=== PATIENT | female | born 1980 | race African-American/Black ===

== ENCOUNTER 2018-09-07 22:20 | Inpatient (IN) | payer OTHER, MEDICAID ==
[~2018-09-07] VITALS: Ht 177.8 cm; Wt 72.6 kg
[2018-09-07 22:25] VITALS: BP_SYST 179
[2018-09-07] MEDS ORDERED: NITROGLYCERIN 1 INCH (GM) OINT. TP ONE (23:30)
[2018-09-07] MEDS ORDERED: ACYCLOVIR IV 500 MG in D5W 100 ML IV ONE (23:45)
[2018-09-07] MEDS ORDERED: HYDROmorphone 1 MG INJ. 1 MG/ML AMPUL IVP ONE (23:45)
[2018-09-08] VITALS (11 sets, daily range): BP systolic 100–160
[2018-09-08] MEDS ORDERED: ACYCLOVIR SODIUM 50 MG/ML VIAL IV ONE ×2 (00:36)
[2018-09-08 01:07] LABS: BASOPHILS # (AUTO) 0.1 K/uL (0.0-0.2); BASOPHILS % (AUTO) 0.9 % (0.0-2.0); EOSINOPHILS % (AUTO) 0.2 % (0.0-4.0); HEMATOCRIT 34.6 % (36-48); HEMOGLOBIN 11.1 g/dL (12.0-16.0); LYMPHOCYTES # (AUTO) 1.3 K/uL (1.0-5.5); LYMPHOCYTES % (AUTO) 9.4 % (20.5-51.5); MEAN CORPUSCULAR HEMOGLOBIN 27 pg (27-31); MEAN CORPUSCULAR HGB CONC 32 % (32-36); MEAN CORPUSCULAR VOLUME 85 fL (79.0-98.0); MONOCYTES # (AUTO) 0.6 K/uL (0.0-1.0); MONOCYTES % (AUTO) 4.4 % (1.7-9.3); NEUTROPHILS # (AUTO) 11.8 K/uL (1.8-7.7); NEUTROPHILS % (AUTO) 85.1 % (40.0-70.0); PLATELET COUNT (AUTO) 284 K/uL (130-430); RED BLOOD CELL COUNT(AUTO) 4.07 MIL/uL (4.2-6.2); RED CELL DISTRIBUTION WIDTH 15.2 % (9.0-15.0); WHITE BLOOD COUNT (AUTO) 13.8 K/uL (4.8-10.8)
[2018-09-08 01:10] LABS: CALCIUM 9.3 mg/dL (8.4-11.0); CREATININE 5.76 mg/dL (0.55-1.30); POTASSIUM 4.6 mmol/L (3.5-5.1)
[2018-09-08 01:15] LABS: PROTHROMBIN TIME 9.8 SECS (9.5-12.5)
[2018-09-08 01:16] LABS: ALBUMIN 3.6 g/dL (3.4-4.8); TOTAL BILIRUBIN 0.9 mg/dL (0.0-1.0)
[2018-09-08] MEDS ORDERED: ONDANSETRON HCL 4 MG/2 ML VIAL IVP ONE ×2 (01:30)
[2018-09-08] MEDS ORDERED: fentaNYL CITRATE/PF 100 MCG/2 ML AMP IVP ONE ×2 (01:30)
[2018-09-08] MEDS ORDERED: ACETAMINOPHEN 325 MG TABLET PO PRN (03:45)
[2018-09-08] MEDS ORDERED: ALBUTEROL SULFATE 0.083% 2.5 MG/3 ML VIAL.NEB INH PRN (03:45)
[2018-09-08] MEDS: HYDROmorphone 1 MG INJ. 1 MG/ML AMPUL IVP PRN ×4 (03:55→23:26)
[2018-09-08] MEDS: ONDANSETRON HCL 4 MG/2 ML VIAL IVP PRN ×2 (03:56→07:53)
[2018-09-08 08:19] LABS: BASOPHILS % (AUTO) 0.3 % (0.0-2.0); EOSINOPHILS % (AUTO) 0.1 % (0.0-4.0); HEMATOCRIT 31.4 % (36-48); HEMOGLOBIN 9.8 g/dL (12.0-16.0); LYMPHOCYTES # (AUTO) 0.7 K/uL (1.0-5.5); LYMPHOCYTES % (AUTO) 5.5 % (20.5-51.5); MEAN CORPUSCULAR HEMOGLOBIN 27 pg (27-31); MEAN CORPUSCULAR HGB CONC 31 % (32-36); MEAN CORPUSCULAR VOLUME 87 fL (79.0-98.0); MONOCYTES # (AUTO) 0.4 K/uL (0.0-1.0); MONOCYTES % (AUTO) 2.7 % (1.7-9.3); NEUTROPHILS # (AUTO) 12.5 K/uL (1.8-7.7); NEUTROPHILS % (AUTO) 91.4 % (40.0-70.0); PLATELET COUNT (AUTO) 298 K/uL (130-430); RED BLOOD CELL COUNT(AUTO) 3.61 MIL/uL (4.2-6.2); RED CELL DISTRIBUTION WIDTH 15.6 % (9.0-15.0); WHITE BLOOD COUNT (AUTO) 13.6 K/uL (4.8-10.8)
[2018-09-08 08:26] LABS: CREATININE 6.5 mg/dL (0.55-1.30)
[2018-09-08 08:36] LABS: ALBUMIN 3.5 g/dL (3.4-4.8)
[2018-09-08 08:38] LABS: POTASSIUM 5.9 mmol/L (3.5-5.1)
[2018-09-08] MEDS ORDERED: DEXTROSE 50% JECT 50 ML DISP.SYRIN IVP PRN (08:45)
[2018-09-08] MEDS ORDERED: INSULIN REGULAR, HUMAN 100 UNITS/ML, 10 ML VIAL IVP ONE (08:45)
[2018-09-08] MEDS: INSULIN REGULAR, HUMAN 100 UNITS/ML, 10 ML VIAL (novoLIN R) SUBCUT PRN ×3 (11:09→23:28)
[2018-09-08] MEDS ORDERED: INSULIN REGULAR, HUMAN 100 UNITS/ML, 10 ML VIAL SUBCUT ONE (13:00)
[2018-09-08] MEDS ORDERED: HEPARIN SODIUM,PORCINE 5000 UNITS/ML VIAL MC ONE (13:00)
[2018-09-08 16:27] LABS: CALCIUM 8.7 mg/dL (8.4-11.0); CREATININE 3.96 mg/dL (0.55-1.30); POTASSIUM 3.6 mmol/L (3.5-5.1)
[2018-09-08 16:36] LABS: ALBUMIN 3.4 g/dL (3.4-4.8); TOTAL BILIRUBIN 0.6 mg/dL (0.0-1.0)
[2018-09-08 16:41] LABS: BASOPHILS # (AUTO) 0.2 K/uL (0.0-0.2); BASOPHILS % (AUTO) 1.3 % (0.0-2.0); EOSINOPHILS % (AUTO) 0.1 % (0.0-4.0); HEMATOCRIT 32.5 % (36-48); HEMOGLOBIN 10.6 g/dL (12.0-16.0); MEAN CORPUSCULAR HEMOGLOBIN 27 pg (27-31); MEAN CORPUSCULAR HGB CONC 33 % (32-36); MEAN CORPUSCULAR VOLUME 84 fL (79.0-98.0); MONOCYTES # (AUTO) 1.3 K/uL (0.0-1.0); MONOCYTES % (AUTO) 9.9 % (1.7-9.3); NEUTROPHILS # (AUTO) 9.5 K/uL (1.8-7.7); NEUTROPHILS % (AUTO) 73.7 % (40.0-70.0); PLATELET COUNT (AUTO) 329 K/uL (130-430); RED BLOOD CELL COUNT(AUTO) 3.85 MIL/uL (4.2-6.2); RED CELL DISTRIBUTION WIDTH 14.9 % (9.0-15.0)
[2018-09-08] MEDS ORDERED: HEPARIN SODIUM,PORCINE 5000 UNITS/ML VIAL IVP ONE (17:45)
[2018-09-08] MEDS: HEPARIN 25,000 UNITS/D5W 250ML 250 ML IV PRN (18:23)
[2018-09-08] MEDS ORDERED: cefTRIAXone 1 GM IVPB PREMIX 50 ML IV ONE (23:00)
[2018-09-08] MEDS ORDERED: LEVOFLOXACIN 500 MG/D5W 100 ML IV ONE (23:45)
[2018-09-09] VITALS (22 sets, daily range): BP systolic 91–160
[2018-09-09] MEDS ORDERED: LEVOFLOXACIN 500 MG/D5W 100 ML IV ONE (00:29)
[2018-09-09] MEDS: INSULIN REGULAR, HUMAN 100 UNITS/ML, 10 ML VIAL (novoLIN R) SUBCUT PRN ×5 (02:51→22:44)
[2018-09-09] MEDS: HYDROmorphone 1 MG INJ. 1 MG/ML AMPUL IVP PRN ×2 (05:49→08:51)
[2018-09-09] MEDS: ONDANSETRON HCL 4 MG/2 ML VIAL IVP PRN (05:50)
[2018-09-09] MEDS ORDERED: PANTOPRAZOLE SODIUM 40 MG/VIAL (PROTONIX) IVP SCH (06:00)
[2018-09-09 07:15] LABS: PROTHROMBIN TIME 10.4 SECS (9.5-12.5)
[2018-09-09 08:44] LABS: MEAN CORPUSCULAR HEMOGLOBIN 27 pg (27-31); MEAN CORPUSCULAR HGB CONC 32 % (32-36)
[2018-09-09 08:54] LABS: CALCIUM 8.8 mg/dL (8.4-11.0); CREATININE 5.87 mg/dL (0.55-1.30)
[2018-09-09 08:55] LABS: BASOPHILS # (AUTO) 0.1 K/uL (0.0-0.2); BASOPHILS % (AUTO) 0.3 % (0.0-2.0); EOSINOPHILS % (AUTO) 0.1 % (0.0-4.0); HEMOGLOBIN 10.1 g/dL (12.0-16.0); LYMPHOCYTES # (AUTO) 2.1 K/uL (1.0-5.5); LYMPHOCYTES % (AUTO) 12.8 % (20.5-51.5); MEAN CORPUSCULAR VOLUME 84 fL (79.0-98.0); MONOCYTES # (AUTO) 0.3 K/uL (0.0-1.0); NEUTROPHILS # (AUTO) 14.2 K/uL (1.8-7.7); NEUTROPHILS % (AUTO) 84.8 % (40.0-70.0); PLATELET COUNT (AUTO) 329 K/uL (130-430); RED BLOOD CELL COUNT(AUTO) 3.82 MIL/uL (4.2-6.2); RED CELL DISTRIBUTION WIDTH 15.1 % (9.0-15.0); WHITE BLOOD COUNT (AUTO) 16.7 K/uL (4.8-10.8)
[2018-09-09] MEDS ORDERED: METOPROLOL TARTRATE 25 MG TABLET PO ONE (09:00)
[2018-09-09 09:03] LABS: TOTAL BILIRUBIN 0.7 mg/dL (0.0-1.0)
[2018-09-09] MEDS ORDERED: PIPERACILLIN/TAZO 2.25G/DEX-IS 50 ML IV ONE (09:15)
[2018-09-09] MEDS: HEPARIN SODIUM,PORCINE 2000 UNITS/0.4 ML BOLUS IVP PRN (09:45)
[2018-09-09] MEDS ORDERED: HEPARIN SODIUM,PORCINE 3000 UNITS/0.6 ML BOLUS IVP PRN (09:45)
[2018-09-09] MEDS: HEPARIN 25,000 UNITS/D5W 250ML 250 ML IV PRN ×2 (09:46→13:58)
[2018-09-09] MEDS: PIPERACILLIN/TAZO 2.25G/DEX-IS 50 ML IV SCH ×2 (14:16→21:18)
[2018-09-09] MEDS: HYDROmorphone 1 MG INJ. 1 MG/ML AMPUL IM PRN ×2 (17:49→21:19)
[2018-09-09] MEDS: METOPROLOL TARTRATE 25 MG TABLET PO SCH (21:18)
[2018-09-09] MEDS: PANTOPRAZOLE SODIUM 40 MG/VIAL (PROTONIX) IVP SCH (21:18)
[2018-09-10] VITALS (24 sets, daily range): BP systolic 114–185
[2018-09-10] MEDS: LORazepam 2 MG/ML VIAL IVP PRN ×2 (00:29→23:12)
[2018-09-10] MEDS: INSULIN REGULAR, HUMAN 100 UNITS/ML, 10 ML VIAL (novoLIN R) SUBCUT PRN ×4 (02:40→18:10)
[2018-09-10] MEDS: HYDROmorphone 1 MG INJ. 1 MG/ML AMPUL IM PRN ×2 (03:31→06:38)
[2018-09-10] MEDS: PIPERACILLIN/TAZO 2.25G/DEX-IS 50 ML IV SCH ×3 (05:58→21:49)
[2018-09-10] MEDS: HEPARIN 25,000 UNITS/D5W 250ML 250 ML IV PRN (06:37)
[2018-09-10] MEDS: METOPROLOL TARTRATE 25 MG TABLET PO SCH ×2 (08:10→20:28)
[2018-09-10] MEDS: PANTOPRAZOLE SODIUM 40 MG/VIAL (PROTONIX) IVP SCH ×2 (08:10→20:25)
[2018-09-10 08:37] LABS: BASOPHILS # (AUTO) 0.2 K/uL (0.0-0.2); BASOPHILS % (AUTO) 1.8 % (0.0-2.0); EOSINOPHILS % (AUTO) 0.3 % (0.0-4.0); HEMATOCRIT 31.3 % (36-48); HEMOGLOBIN 10.1 g/dL (12.0-16.0); LYMPHOCYTES % (AUTO) 25.5 % (20.5-51.5); MEAN CORPUSCULAR HEMOGLOBIN 27 pg (27-31); MEAN CORPUSCULAR HGB CONC 32 % (32-36); MEAN CORPUSCULAR VOLUME 84 fL (79.0-98.0); MONOCYTES # (AUTO) 0.9 K/uL (0.0-1.0); MONOCYTES % (AUTO) 7.9 % (1.7-9.3); NEUTROPHILS # (AUTO) 7.7 K/uL (1.8-7.7); NEUTROPHILS % (AUTO) 64.5 % (40.0-70.0); PLATELET COUNT (AUTO) 318 K/uL (130-430); RED BLOOD CELL COUNT(AUTO) 3.74 MIL/uL (4.2-6.2); WHITE BLOOD COUNT (AUTO) 11.8 K/uL (4.8-10.8)
[2018-09-10 08:48] LABS: CALCIUM 8.4 mg/dL (8.4-11.0); POTASSIUM 4.1 mmol/L (3.5-5.1)
[2018-09-10 08:52] LABS: ALBUMIN 3.1 g/dL (3.4-4.8); TOTAL BILIRUBIN 0.6 mg/dL (0.0-1.0)
[2018-09-10 08:56] LABS: CREATININE 8.16 mg/dL (0.55-1.30)
[2018-09-10] MEDS: HYDROmorphone 1 MG INJ. 1 MG/ML AMPUL IVP PRN ×4 (11:20→21:50)
[2018-09-10] MEDS ORDERED: HEPARIN SODIUM,PORCINE 5000 UNITS/ML VIAL IVP ONE (14:45)
[2018-09-10] MEDS ORDERED: HEPARIN SODIUM,PORCINE 5000 UNITS/ML VIAL ONE (14:47)
[2018-09-11] VITALS (24 sets, daily range): BP systolic 124–186
[2018-09-11] MEDS: HEPARIN 25,000 UNITS/D5W 250ML 250 ML IV PRN ×2 (02:17→22:01)
[2018-09-11] MEDS: INSULIN REGULAR, HUMAN 100 UNITS/ML, 10 ML VIAL (novoLIN R) SUBCUT PRN ×3 (02:32→17:29)
[2018-09-11] MEDS: HYDROmorphone 1 MG INJ. 1 MG/ML AMPUL IVP PRN ×6 (03:33→23:10)
[2018-09-11] MEDS: PIPERACILLIN/TAZO 2.25G/DEX-IS 50 ML IV SCH ×3 (05:53→21:56)
[2018-09-11] MEDS: LORazepam 2 MG/ML VIAL IVP PRN ×2 (06:04→13:09)
[2018-09-11] MEDS: PANTOPRAZOLE SODIUM 40 MG/VIAL (PROTONIX) IVP SCH ×2 (09:16→20:55)
[2018-09-11] MEDS: METOPROLOL TARTRATE 50 MG TABLET PO SCH ×2 (09:21→20:55)
[2018-09-11] MEDS: amLODIPine BESYLATE 5 MG TABLET PO SCH (09:22)
[2018-09-11] MEDS ORDERED: INSULIN REGULAR, HUMAN 100 UNITS/ML, 10 ML VIAL SUBCUT ONE (11:45)
[2018-09-12] VITALS (17 sets, daily range): BP systolic 136–189
[2018-09-12] MEDS: ONDANSETRON HCL 4 MG/2 ML VIAL IVP PRN ×2 (00:15→20:31)
[2018-09-12] MEDS: HYDROmorphone 1 MG INJ. 1 MG/ML AMPUL IVP PRN ×7 (03:08→23:59)
[2018-09-12] MEDS: cloNIDine HCL 0.1 MG TABLET PO PRN ×2 (03:19→18:21)
[2018-09-12] MEDS: PIPERACILLIN/TAZO 2.25G/DEX-IS 50 ML IV SCH ×3 (05:27→22:42)
[2018-09-12] MEDS ORDERED: INSULIN REGULAR, HUMAN 100 UNITS/ML, 10 ML VIAL SUBCUT ONE ×2 (05:45→07:15)
[2018-09-12] MEDS: PANTOPRAZOLE SODIUM 40 MG/VIAL (PROTONIX) IVP SCH ×2 (08:08→20:32)
[2018-09-12] MEDS: amLODIPine BESYLATE 5 MG TABLET PO SCH (08:10)
[2018-09-12] MEDS: METOPROLOL TARTRATE 50 MG TABLET PO SCH ×2 (08:10→22:12)
[2018-09-12] MEDS: LORazepam 2 MG/ML VIAL IVP PRN (08:11)
[2018-09-12] MEDS: INSULIN REGULAR, HUMAN 100 UNITS/ML, 10 ML VIAL (novoLIN R) SUBCUT PRN ×3 (11:03→22:18)
[2018-09-12] MEDS ORDERED: ASPIRIN 81 MG TAB.CHEW PO SCH (17:30)
[2018-09-12] MEDS: ATORVASTATIN 20 MG TABLET PO SCH (17:58)
[2018-09-12] MEDS: HEPARIN 25,000 UNITS/D5W 250ML 250 ML IV PRN (19:31)
[2018-09-13 00:04] VITALS: BP_SYST 157
[2018-09-13] MEDS: ONDANSETRON HCL 4 MG/2 ML VIAL IVP PRN ×2 (01:49→13:43)
[2018-09-13] MEDS: HYDROmorphone 1 MG INJ. 1 MG/ML AMPUL IVP PRN ×6 (02:41→21:12)
[2018-09-13] MEDS: INSULIN REGULAR, HUMAN 100 UNITS/ML, 10 ML VIAL (novoLIN R) SUBCUT PRN ×4 (02:49→18:31)
[2018-09-13] MEDS: PIPERACILLIN/TAZO 2.25G/DEX-IS 50 ML IV SCH ×3 (06:10→21:24)
[2018-09-13 06:16] LABS: EOSINOPHILS # (AUTO) 0.2 K/uL (0.0-0.4); MEAN CORPUSCULAR HGB CONC 32 % (32-36); MONOCYTES # (AUTO) 0.6 K/uL (0.0-1.0)
[2018-09-13 06:20] LABS: CALCIUM 8.5 mg/dL (8.4-11.0); POTASSIUM 3.8 mmol/L (3.5-5.1)
[2018-09-13 06:30] LABS: ALBUMIN 2.7 g/dL (3.4-4.8); TOTAL BILIRUBIN 0.3 mg/dL (0.0-1.0)
[2018-09-13 06:48] LABS: HEMATOCRIT 33.3 % (36-48); HEMOGLOBIN 10.6 g/dL (12.0-16.0); MEAN CORPUSCULAR HEMOGLOBIN 26 pg (27-31); MEAN CORPUSCULAR VOLUME 83 fL (79.0-98.0); NEUTROPHILS % (AUTO) 47.2 % (40.0-70.0); PLATELET COUNT (AUTO) 272 K/uL (130-430); RED BLOOD CELL COUNT(AUTO) 4.03 MIL/uL (4.2-6.2); RED CELL DISTRIBUTION WIDTH 14.6 % (9.0-15.0); WHITE BLOOD COUNT (AUTO) 8.4 K/uL (4.8-10.8)
[2018-09-13 06:49] LABS: BASOPHILS # (AUTO) 0.1 K/uL (0.0-0.2); BASOPHILS % (AUTO) 1.4 % (0.0-2.0); LYMPHOCYTES # (AUTO) 3.6 K/uL (1.0-5.5); LYMPHOCYTES % (AUTO) 42.8 % (20.5-51.5); MONOCYTES % (AUTO) 6.6 % (1.7-9.3); NEUTROPHILS # (AUTO) 3.9 K/uL (1.8-7.7)
[2018-09-13 06:58] LABS: CREATININE 10.1 mg/dL (0.55-1.30)
[2018-09-13] MEDS: HEPARIN SODIUM,PORCINE 2000 UNITS/0.4 ML BOLUS IVP PRN ×2 (07:27→14:49)
[2018-09-13] MEDS: HEPARIN 25,000 UNITS/D5W 250ML 250 ML IV PRN ×3 (07:29→16:53)
[2018-09-13 08:00] VITALS: BP_SYST 169
[2018-09-13] MEDS: METOPROLOL TARTRATE 50 MG TABLET PO SCH ×2 (09:00→21:19)
[2018-09-13] MEDS: amLODIPine BESYLATE 5 MG TABLET PO SCH (09:00)
[2018-09-13] MEDS: PANTOPRAZOLE SODIUM 40 MG/VIAL (PROTONIX) IVP SCH ×2 (09:06→21:15)
[2018-09-13 11:28] VITALS: BP_SYST 161
[2018-09-13] MEDS ORDERED: HEPARIN SODIUM, PORCINE 10,000 UNITS/ 10 ML VIAL MC ONE (12:15)
[2018-09-13] MEDS ORDERED: HEPARIN SODIUM,PORCINE 5000 UNITS/ML VIAL MC ONE (12:45)
[2018-09-13 16:32] VITALS: BP_SYST 150
[2018-09-13] MEDS: ATORVASTATIN 20 MG TABLET PO SCH (18:25)
[2018-09-13 20:00] VITALS: BP_SYST 191
[2018-09-13 23:05] VITALS: BP_SYST 142
[2018-09-14] MEDS: HEPARIN 25,000 UNITS/D5W 250ML 250 ML IV PRN ×3 (00:07→13:14)
[2018-09-14] MEDS: HYDROmorphone 1 MG INJ. 1 MG/ML AMPUL IVP PRN ×7 (00:08→21:17)
[2018-09-14] MEDS: cloNIDine HCL 0.1 MG TABLET PO PRN ×2 (00:11→21:10)
[2018-09-14] MEDS: ONDANSETRON HCL 4 MG/2 ML VIAL IVP PRN ×5 (00:17→21:07)
[2018-09-14] MEDS: INSULIN REGULAR, HUMAN 100 UNITS/ML, 10 ML VIAL (novoLIN R) SUBCUT PRN ×5 (00:18→17:45)
[2018-09-14] MEDS: PIPERACILLIN/TAZO 2.25G/DEX-IS 50 ML IV SCH ×3 (06:21→23:17)
[2018-09-14] MEDS: amLODIPine BESYLATE 5 MG TABLET PO SCH (08:21)
[2018-09-14] MEDS: PANTOPRAZOLE SODIUM 40 MG/VIAL (PROTONIX) IVP SCH ×2 (08:21→21:10)
[2018-09-14] MEDS: METOPROLOL TARTRATE 50 MG TABLET PO SCH ×2 (08:21→21:10)
[2018-09-14 08:31] VITALS: BP_SYST 154
[2018-09-14 12:00] VITALS: BP_SYST 149
[2018-09-14] MEDS ORDERED: REGADENOSON 0.4 MG/5 ML SYRINGE IVP ONE (15:00)
[2018-09-14 15:12] LABS: PLATELET COUNT (AUTO) 286 K/uL (130-430)
[2018-09-14 15:26] LABS: RED CELL DISTRIBUTION WIDTH 14.7 % (9.0-15.0)
[2018-09-14 16:00] VITALS: BP_SYST 144
[2018-09-14 16:26] LABS: HEMATOCRIT 36.9 % (36-48); HEMOGLOBIN 11.7 g/dL (12.0-16.0); MEAN CORPUSCULAR HEMOGLOBIN 27 pg (27-31); MEAN CORPUSCULAR HGB CONC 32 % (32-36); RED BLOOD CELL COUNT(AUTO) 4.42 MIL/uL (4.2-6.2); WHITE BLOOD COUNT (AUTO) 6.2 K/uL (4.8-10.8)
[2018-09-14 16:27] LABS: MEAN CORPUSCULAR VOLUME 84 fL (79.0-98.0)
[2018-09-14 16:53] LABS: BAND % (MANUAL) 2 % (0-6); BASOPHILS % (MANUAL) 0 % (0-2); EOSINOPHILS % (MANUAL) 7 % (0-7); LYMPHOCYTES % (MANUAL) 35 % (20-46); MONOCYTES % (MANUAL) 9 % (0-11)
[2018-09-14 17:25] VITALS: BP_SYST 154
[2018-09-14] MEDS: ATORVASTATIN 20 MG TABLET PO SCH (17:46)
[2018-09-14 20:20] VITALS: BP_SYST 180
[2018-09-15] MEDS: INSULIN REGULAR, HUMAN 100 UNITS/ML, 10 ML VIAL (novoLIN R) SUBCUT PRN ×4 (00:11→11:12)
[2018-09-15 00:14] VITALS: BP_SYST 161
[2018-09-15] MEDS: HYDROmorphone 1 MG INJ. 1 MG/ML AMPUL IVP PRN ×4 (02:37→13:01)
[2018-09-15] MEDS: ONDANSETRON HCL 4 MG/2 ML VIAL IVP PRN ×2 (02:37→06:44)
[2018-09-15] MEDS: cloNIDine HCL 0.1 MG TABLET PO PRN (02:43)
[2018-09-15] MEDS: PIPERACILLIN/TAZO 2.25G/DEX-IS 50 ML IV SCH (06:32)
[2018-09-15 06:35] VITALS: BP_SYST 138
[2018-09-15 08:05] VITALS: BP_SYST 131
[2018-09-15] MEDS: PANTOPRAZOLE SODIUM 40 MG/VIAL (PROTONIX) IVP SCH (08:36)
[2018-09-15] MEDS: amLODIPine BESYLATE 5 MG TABLET PO SCH (08:36)
[2018-09-15] MEDS: METOPROLOL TARTRATE 50 MG TABLET PO SCH (08:36)
[2018-09-15] MEDS: HEPARIN 25,000 UNITS/D5W 250ML 250 ML IV PRN (08:38)
[2018-09-15 12:59] VITALS: BP_SYST 145
== END 2018-09-15 14:25 | disposition left against medical advice (07) | DRG 280 ==
LOC: SED 22:20 → STU 09-08 02:35 → SIC 09-08 17:29 → STU 09-12 18:54
PROVIDERS: ADMIT Internal Medicine Hospice and Palliative Medicine; ATTEND Internal Medicine Hospice and Palliative Medicine
PROC: 5A1D70Z Performance of Urinary Filtration, Intermittent, Less than 6 Hours Per Day (ICD-10-PCS; principal; 2018-09-08)
PROC: 5A1D70Z Performance of Urinary Filtration, Intermittent, Less than 6 Hours Per Day (ICD-10-PCS; 2018-09-10)
PROC: 5A1D70Z Performance of Urinary Filtration, Intermittent, Less than 6 Hours Per Day (ICD-10-PCS; 2018-09-13)
DX: I21.A1 Myocardial infarction type 2 (principal); N18.6 End stage renal disease; E11.10 Type 2 diabetes mellitus with ketoacidosis without coma; E87.2 Acidosis; K92.2 Gastrointestinal hemorrhage, unspecified; I13.11 Hypertensive heart and chronic kidney disease without heart failure, with stage 5 chronic kidney disease, or end stage renal disease; R10.9 Unspecified abdominal pain; D64.9 Anemia, unspecified; R79.89 Other specified abnormal findings of blood chemistry; Z53.21 Procedure and treatment not carried out due to patient leaving prior to being seen by health care provider; E11.22 Type 2 diabetes mellitus with diabetic chronic kidney disease; I25.119 Atherosclerotic heart disease of native coronary artery with unspecified angina pectoris; E87.5 Hyperkalemia; F17.200 Nicotine dependence, unspecified, uncomplicated; Z99.2 Dependence on renal dialysis; Z88.6 Allergy status to analgesic agent; Z88.5 Allergy status to narcotic agent; Z88.0 Allergy status to penicillin
CPT/HCPCS: 36415; 71045; 76700-TC; 80053; 82962; 83605; 83880; 84484; 84702-TC; 85007; 85025; 85027; 85379; 85610-TC; 85730-TC; 87040-TC; 87081; 90935; 90937; 93005; 93017; 93306; 96365; 96375; 99285; A9500; C9113; G0378; J0133; J1170; J1644; J1815; J1956; J2060; J2405; J2543; J2785; J3010; J7030; J7060